=== PATIENT | male | born 1980 | race African-American/Black ===

== ENCOUNTER 2017-10-10 12:54 | Emergency (ER) | payer OTHER ==
[~2017-10-10] VITALS: Ht 170.2 cm; Wt 99.8 kg
[2017-10-10 13:03] VITALS: BP 167/117
[2017-10-10 14:34] LABS: BASOPHILS % (AUTO) 0.5 % (0.0-2.0); EOSINOPHILS # (AUTO) 0.1 K/uL (0-0.4); EOSINOPHILS % (AUTO) 0.9 % (0.0-4.0); HEMATOCRIT 41.7 % (36-52); HEMOGLOBIN 13.2 g/dL (12.0-18.0); LYMPHOCYTES # (AUTO) 1.7 K/uL (2.0-11.5); LYMPHOCYTES % (AUTO) 31.3 % (20.5-51.1); MEAN CORPUSCULAR HEMOGLOBIN 26 pg (27-31); MEAN CORPUSCULAR HGB CONC 32 g/dL (33-37); MEAN CORPUSCULAR VOLUME 82.9 fL (80-94); MONOCYTES # (AUTO) 0.5 K/uL (0.8-1.0); MONOCYTES % (AUTO) 8.9 % (1.7-9.3); NEUTROPHILS # (AUTO) 3.2 K/uL (1.8-7.7); NEUTROPHILS % (AUTO) 58.4 % (42.2-75.2); PLATELET COUNT (AUTO) 317 K/uL (140-450); RED BLOOD CELL COUNT(AUTO) 5.03 MIL/uL (4.20-6.10); RED CELL DISTRIBUTION WIDTH 13.8 % (11.6-13.7); WHITE BLOOD COUNT (AUTO) 5.5 K/uL (4.8-10.8)
[2017-10-10 14:52] LABS: ALBUMIN 3.6 g/dL (3.4-5.0); ANION GAP 8.4 (8-16); CARBON DIOXIDE 28.8 mmol/L (21-32); CREATININE 0.9 mg/dL (0.7-1.3); POTASSIUM 3.2 mmol/L (3.5-5.1); TOTAL BILIRUBIN 0.6 mg/dL (0.0-1.0)
[2017-10-10 15:04] LABS: PROTHROMBIN TIME 11.5 secs (10.8-13.4)
[2017-10-10 16:06] VITALS: BP 152/102
== END 2017-10-10 16:06 | disposition home or self-care (01) ==
LOC: MED 12:54
DX: K62.5 Hemorrhage of anus and rectum (principal); I10 Essential (primary) hypertension; E11.9 Type 2 diabetes mellitus without complications; F17.210 Nicotine dependence, cigarettes, uncomplicated; R53.1 Weakness; R22.9 Localized swelling, mass and lump, unspecified; M79.602 Pain in left arm
CPT/HCPCS: 36415; 80053; 84484; 85025; 85610; 85730; 86886; 86900; 86901; 93005; 99285

== ENCOUNTER 2018-02-25 07:57 | Emergency (ER) | payer OTHER ==
[~2018-02-25] VITALS: Ht 170.2 cm; Wt 99.8 kg
--- NOTE | 2018-02-25 08:02 | NUR ---
PT AMBULATES TO BED 4
[2018-02-25 08:05] VITALS: BP 178/102
--- NOTE | 2018-02-25 08:08 | NUR ---
PATIENT PRESENTS TO ED WITH c/o body aches and fever . PT STATES his symptoms started yesterday . DENIES N/V/D; SKIN IS PINK/WARM/DRY; AAOX4 WITH EVEN AND STEADY GAIT; LUNGS CLEAR BL; HR EVEN AND REGULAR; PT DENIES ANY CP, SOB, OR COUGH AT THIS TIME; PATIENT STATES PAIN OF 7/10 AT THIS TIME; VSS; PATIENT POSITIONED FOR COMFORT; HOB ELEVATED; BEDRAILS UP X2; BED DOWN. ER MD MADE AWARE OF PT STATUS.
--- NOTE | 2018-02-25 08:09 | NUR ---
Patient being evaluated by physician at bedside.
--- NOTE | 2018-02-25 08:15 | NUR ---
Patient discharged BY DR HARTMAN. Patient alert, oriented and verbalized understanding of instructions. Ambulatory with steady gait. All questions addressed prior to discharge. ID band removed. Patient advised to follow up with PMD. RX OF PROMETHAZINE AND AUGMENTIN GIVEN . Patient educated on indication of medication including possible reaction and side effects. Opportunity to ask questions provided and answered.
[2018-02-25 08:17] VITALS: BP 178/102
== END 2018-02-25 08:15 | disposition home or self-care (01) ==
LOC: MED 07:57
DX: J20.9 Acute bronchitis, unspecified (principal); E11.9 Type 2 diabetes mellitus without complications; I10 Essential (primary) hypertension; Z88.6 Allergy status to analgesic agent
CPT/HCPCS: 99283

== ENCOUNTER 2018-06-09 02:50 | Emergency (ER) | payer OTHER ==
[~2018-06-09] VITALS: Ht 170.2 cm; Wt 100.7 kg
[2018-06-09 03:01] VITALS: BP 150/83
--- NOTE | 2018-06-09 03:02 | NUR ---
PT BIB [facility] FOR "METFORMIN STUCK IN THRAOT". PT REPORTS HAVING METFORMIN STUCK IN HIS THROAT SINCE 23:00 LAST NIGHT. PT AIRWAY PATENT. NO VISIBLE SIGNS OF DEFORMITY IN NECK, PT CAN SWALLOW, NO EXCESS DROOL NOTED. VSS. ER TO SEE PT. MEDHX:HTN, DMII
--- NOTE | 2018-06-09 03:54 | NUR ---
PT GOING TO X-RAY AT THIS TIME.
[2018-06-09 04:30] VITALS: BP 150/83
--- NOTE | 2018-06-09 04:30 | NUR ---
Patient discharged with v/s stable. Written and verbal after care instructions given and explained. Patient verbalized understanding. Ambulatory with steady gait. All questions addressed prior to discharge. Advised to follow up with PMD.
== END 2018-06-09 04:30 | disposition home or self-care (01) ==
LOC: MED 02:50
DX: T18.198A Other foreign object in esophagus causing other injury, initial encounter (principal); E11.9 Type 2 diabetes mellitus without complications; I10 Essential (primary) hypertension; Z88.8 Allergy status to other drugs, medicaments and biological substances; X58.XXXA Exposure to other specified factors, initial encounter; Y93.89 Activity, other specified; Y92.89 Other specified places as the place of occurrence of the external cause; Y99.8 Other external cause status
CPT/HCPCS: 72040; 99283; Q0092